=== PATIENT | female | born 1995 | race Caucasian/White ===

== ENCOUNTER 2017-04-18 17:24 | Emergency (ER) | payer OTHER ==
[~2017-04-18] VITALS: Ht 160 cm; Wt 104.5 kg
[2017-04-18 17:35] VITALS: BP 136/80; TEMP 98
[2017-04-18] MEDS ORDERED: ADDERALL20 MG PO (17:38)
[2017-04-18] MEDS ORDERED: LEXAPRO 5MG5 MG PO (17:39)
[2017-04-18 18:19] LABS: COLLECTION METHOD CLEAN CATCH
[2017-04-18 18:30] LABS: MUCOUS Present /lpf; PH 6 (5-8); SQUAMOUS EPITHELIAL 0-2 /hpf; URINE APPEARANCE Clear; URINE BACTERIA Rare /hpf; URINE BILIRUBIN Negative (NEGATIVE); URINE BLOOD Negative (NEGATIVE); URINE COLOR Yellow; URINE GLUCOSE Negative (NEGATIVE); URINE KETONE Negative (NEGATIVE); URINE LEUKOCYTE ESTERASE Negative (NEGATIVE); URINE PROTEIN(semi-quant) Negative (NEGATIVE); URINE RBC 0-2 /hpf; URINE UROBILINOGEN Negative (NEGATIVE); URINE WBC 0-2 /hpf
[2017-04-18 19:41] LABS: BASO % 0.5 % (0.0-2.0); EOS % 0.4 % (0-4.0); GRAN # 6.1 (1.4-6.5); GRAN % 74.5 % (42.2-75.2); HEMATOCRIT 43.3 % (37.0-47.0); HEMOGLOBIN 15.1 g/dl (12.5-16.0); LYMPH # 1.4 (1.2-3.4); MEAN CELL VOLUME 88 fl (80.0-100.0); MEAN CORPUSCULAR HEMOGLOBIN 31 pg (27.0-31.0); MEAN CORPUSCULAR HGB CONC 35 g/dl (33.0-37.0); MEAN PLATELET VOLUME 10.1 fl (7.4-10.4); MONO # 0.6 (0.1-0.6); MONO % 7.2 % (1.7-9.3); PLATELET COUNT 292 K/mm3 (130-400); RED BLOOD COUNT 4.92 M/mm3 (4.10-5.30); WHITE BLOOD COUNT 8.1 K/mm3 (4.8-10.8)
[2017-04-18 19:51] LABS: ADJUSTED CALCIUM 9.3 mg/dL (8.4-10.2); ALBUMIN 4.6 gm/dL (3.5-5.0); BILIRUBIN,TOTAL 0.8 mg/dL (0.0-1.0); CALCIUM 9.8 mg/dL (8.4-10.2); CREATININE, serum 0.84 mg/dL (0.52-1.25); POTASSIUM 4.2 mmol/L (3.4-5.0)
[2017-04-18] MEDS ORDERED: AMOXICILLIN 8751 TAB PO (20:55)
[2017-04-18 21:06] VITALS: PULSE 81
== END 2017-04-18 21:07 | disposition home or self-care (01) ==
LOC: COL.ER 17:24
PROVIDERS: Nurse Practitioner
DX: J32.9 Chronic sinusitis, unspecified (principal); R55 Syncope and collapse; F90.9 Attention-deficit hyperactivity disorder, unspecified type; Z90.49 Acquired absence of other specified parts of digestive tract
CPT/HCPCS: J1200; J1885; J2765; J7030